=== PATIENT | male | born 2000 | race Caucasian/White ===

== ENCOUNTER 2025-04-09 16:51 | Emergency (ER) | payer OTHER ==
[~2025-04-09] VITALS: Ht 180.3 cm; Wt 86.4 kg
[2025-04-09 16:55] VITALS: BP 126/62; PULSE 64; RESP 18; TEMP 98.3; O2SAT 99
== END 2025-04-09 18:22 | disposition home or self-care (01) ==
LOC: EMS 16:56
DX: S20.419A Abrasion of unspecified back wall of thorax, initial encounter (principal); W57.XXXA Bitten or stung by nonvenomous insect and other nonvenomous arthropods, initial encounter; Y93.89 Activity, other specified; Y92.89 Other specified places as the place of occurrence of the external cause; Y99.8 Other external cause status
CPT/HCPCS: 99282; Z7502